=== PATIENT | female | born 1980 | race Caucasian/White ===

== ENCOUNTER 2018-04-04 20:09 | Emergency (ER) | payer MEDICARE ==
[~2018-04-04] VITALS: Ht 175.3 cm; Wt 85.7 kg
[2018-04-04 20:18] VITALS: BP_SYST 132
--- NOTE | 2018-04-04 20:45 | NUR ---
Placed in room 03 . To gown for exam. Side rails up. Report given to AGATHA Saenz.
--- NOTE | 2018-04-04 20:50 | NUR ---
Pt came in presenting with lower back pain with a scale of 7/10. No other complaint and no medical history noted. Safety precaution observed. Will continue to monitor Pt.
--- NOTE | 2018-04-04 20:51 | NUR ---
ER MD YOON AT BEDSIDE FOR MEDICAL EVALUATION
[2018-04-04] MEDS ORDERED: MORPHINE 2 MG/ML INJ. SYRINGE IM ONE (21:00)
[2018-04-04 21:37] VITALS: BP_SYST 126
--- NOTE | 2018-04-04 21:37 | NUR ---
Pt discharged, at bedside to pick her up ambulatory with transportation.
--- NOTE | 2018-04-04 21:37 | NUR ---
Patient given written and verbal discharge instructions and verbalizes understanding. ER MD Love discussed with patient the results and treatment provided. Patient in stable condition. ID arm band removed. Rx of Duarte, Flexeril given. Patient educated on pain management and to follow up with PMD. Pain Scale 0/10. Opportunity for questions provided and answered. Medication side effect fact sheet provided.
== END 2018-04-04 21:37 | disposition home or self-care (01) ==
LOC: SED 20:09
DX: G89.29 Other chronic pain (principal); M54.5 Low back pain; R03.0 Elevated blood-pressure reading, without diagnosis of hypertension; Z88.6 Allergy status to analgesic agent
CPT/HCPCS: 96372; 99283; J2270

== ENCOUNTER 2019-03-01 16:06 | Emergency (ER) | payer MEDICAID, MEDICARE ==
[~2019-03-01] VITALS: Ht 175.3 cm; Wt 88.5 kg
[2019-03-01 16:06] VITALS: BP_SYST 113
[2019-03-01] MEDS ORDERED: HYDROcodone/ACETAMIN 5-325 MG TAB (NORCO/ VICODIN) PO ONE (17:00)
[2019-03-01 17:02] LABS: BILIRUBIN,URINE NEGATIVE (NEGATIVE); BLOOD, URINE 1+ (NEGATIVE); CLARITY/URINE SL HAZY (CLEAR); COLOR,URINE YELLOW (YELLOW); GLUCOSE,URINE NEGATIVE (NEGATIVE); KETONES,URINE TRACE (NEGATIVE); LEUKOCYTE ESTERASE ,URINE NEGATIVE (NEGATIVE); NITRITE, URINE NEGATIVE (NEGATIVE); PH,URINE 6.5 (5.0-8.0); PROTEIN URINE NEGATIVE (NEGATIVE)
[2019-03-01 17:19] LABS: BACTERIA,URINE FEW /HPF (None Seen); RBC,URINE 0-3 /HPF (0-3); WBC,URINE 0-3 /HPF (0-3)
[2019-03-01 17:20] LABS: MUCUS,URINE None Seen /LPF (None Seen)
[2019-03-01] MEDS ORDERED: ALBUTEROL SULFATE 0.083% 2.5 MG/3 ML VIAL.NEB INH ONE (17:59)
[2019-03-01 18:30] VITALS: BP_SYST 113
== END 2019-03-01 18:30 | disposition home or self-care (01) ==
LOC: SED 16:06
DX: S30.0XXA Contusion of lower back and pelvis, initial encounter (principal); R03.0 Elevated blood-pressure reading, without diagnosis of hypertension; Z88.6 Allergy status to analgesic agent; W01.0XXA Fall on same level from slipping, tripping and stumbling without subsequent striking against object, initial encounter; Y93.89 Activity, other specified; Y92.89 Other specified places as the place of occurrence of the external cause; Y99.8 Other external cause status
CPT/HCPCS: 72220; 81000; 81025; 99284; J7613

== ENCOUNTER 2020-10-25 17:50 | Emergency (ER) | payer MEDICAID ==
[~2020-10-25] VITALS: Ht 175.3 cm; Wt 84.8 kg
[2020-10-25 18:04] VITALS: BP_SYST 136
[2020-10-25] MEDS ORDERED: HYDROcodone/ACETAMIN 7.5-325 MG TAB PO ONE (19:00)
[2020-10-25] MEDS ORDERED: CYCL-10 PO (19:51)
[2020-10-25] MEDS ORDERED: ACET12.55 PO (19:51)
[2020-10-25 20:11] VITALS: BP_SYST 121
== END 2020-10-25 20:11 | disposition home or self-care (01) ==
LOC: SED 17:50
DX: S39.012A Strain of muscle, fascia and tendon of lower back, initial encounter (principal); Z88.6 Allergy status to analgesic agent; X50.0XXA Overexertion from strenuous movement or load, initial encounter; Y93.89 Activity, other specified; Y92.89 Other specified places as the place of occurrence of the external cause; Y99.8 Other external cause status
CPT/HCPCS: 72100-TC; 99283